=== PATIENT | female | born 1985 | race Caucasian/White ===

== ENCOUNTER 2017-07-02 09:38 | Emergency (ER) | payer SELFPAY ==
[2017-07-02] MEDS: IPRATRPIUM/ALBUTEROL 0.5/2.5MG 3 ML NEBU. NEB (10:07)
== END 2017-07-02 10:32 | disposition home or self-care (01) ==
LOC: ER 09:38
DX: J45.21 Mild intermittent asthma with (acute) exacerbation (principal); J06.9 Acute upper respiratory infection, unspecified; B97.89 Other viral agents as the cause of diseases classified elsewhere; F17.200 Nicotine dependence, unspecified, uncomplicated
CPT/HCPCS: 71046; 94640; 99284-25; J7620

== ENCOUNTER 2019-04-24 18:15 | Emergency (ER) | payer SELFPAY ==
[~2019-04-24] VITALS: Ht 162.6 cm; Wt 95.3 kg
[~2019-04-24 18:15] MED LIST: ALBU2.5V8 INH; LORA-434 PO; ONDA4TAB10 SL; PRED20TA PO
[2019-04-24 18:40] VITALS: BP 161/89
--- NOTE | 2019-04-24 19:11 | PHYS DOC ---
Past Medical History Past Medical History: Anxiety, Other Additional Past Medical Histor: opiate addiction (STACEY PETERSON APRN) Past Surgical History: Tonsillectomy (STACEY PETERSON APRN) Alcohol Use: None Drug Use: Methadone (STACEY PETERSON APRN) Adult General Chief Complaint Chief Complaint: HAND PROBLEM HPI HPI Patient is a 34 year old female who presents after falling when she fell on her bilateral hand on Friday. She states that she fell when she was running from a wasp. The patient rates her pain as 5/10 in severity and states that her R hand is not bothering her but she is having some L hand pain that has been bothering her since that time. (STACEY PETERSON APRN) Review of Systems Review of Systems Constitutional: Denies fever or chills [] Eyes: Denies change in visual acuity, redness, or eye pain [] HENT: Denies nasal congestion or sore throat [] Respiratory: Denies cough or shortness of breath [] Cardiovascular: No additional information not addressed in HPI [] GI: Denies abdominal pain, nausea, vomiting, bloody stools or diarrhea [] : Denies dysuria or hematuria [] Musculoskeletal: Reports L hand pain. Integument: Reports abrasion to the L hand. Neurologic: Denies headache, focal weakness or sensory changes [] Endocrine: Denies polyuria or polydipsia [] Complete systems were reviewed and found to be within normal limits, except as documented in this note. (STACEY PETERSON APRN) Current Medications Current Medications Current Medications Medications (Trade) Dose Ordered Sig/Prashanth Start Time Stop Time Status Last Admin Dose Admin Ketorolac Tromethamine (Toradol 30mg Vial) 30 mg 1X STAT 04/24/19 19:15 04/24/19 19:25 DC 04/24/19 19:15 30 MG (STACEY VILLALOBOS DO) Allergies Allergies Allergies Coded Allergies Type Severity Reaction Last Updated Verified No Known Drug Allergies 06/15/16 No (STACEY VILLALOBOS DO) Physical Exam Physical Exam Constitutional: Well developed, well nourished, no acute distress, non-toxic appearance. [] HENT: Normocephalic, atraumatic, bilateral external ears normal, oropharynx moist, no oral exudates, nose normal. [] Eyes: PERRLA, EOMI, conjunctiva normal, no discharge. [] Neck: Normal range of motion, no tenderness, supple, no stridor. [] Skin: abrasion to palm of hand. Back: No tenderness, no CVA tenderness. [] Extremities: Tenderness to left hand, especially first and 5th digit and top of hand. Neurovascular intact. Neurologic: Alert and oriented X 3, normal motor function, normal sensory function, no focal deficits noted. [] Psychologic: Affect normal, judgement normal, mood normal. [] (STACEY PETERSON APRN) Current Patient Data Vital Signs Vital Signs Date Time Temp Pulse Resp B/P (MAP) Pulse Ox O2 Delivery O2 Flow Rate FiO2 04/24/19 18:40 99.1 91 16 161/89 (113) 97 Room Air 99.1 (STACEY VILLALOBOS DO) EKG EKG [] (STACEY PETERSON APRN) Radiology/Procedures Radiology/Procedures X-ray interpreted by Dr. Villalobos No obvious acute abnormalities. (STACEY PETERSON APRN) Radiology/Procedures PROCEDURE: HAND LEFT 3V EXAM: LEFT HAND 3 VIEWS. HISTORY: Left hand pain after a fall. COMPARISON: None. FINDINGS: No fractures are identified. Alignment is maintained. Joint spaces are maintained. IMPRESSION: 1. No fracture. Electronically signed by: Remy Urbina MD (04/24/2019 9:19 PM) [facility] (STACEY VILLALOBOS DO) Course & Med Decision Making Course & Med Decision Making Pertinent Labs and Imaging studies reviewed. (See chart for details) Will get X-ray and give Toradol. Imaging was negative. Will d/c home. (STACEY PETERSON APRN) Dragon Disclaimer Dragon Disclaimer This electronic medical record was generated, in whole or in part, using a voice recognition dictation system. (STACEY PETERSON APRN) Departure Departure Impression: Primary Impression: Hand pain, left Disposition: HOME, SELF-CARE Condition: STABLE Referrals: NO PCP (PCP) Patient Instructions: Contusion Additional Instructions: Thank you for visiting [facility]. We appreciate you trusting us with your care. If any additional problems come up don't hesitate to return to visit us. Please follow up with your primary care provider so they can plan additional care if needed and know about the problem that you had. If symptoms worsen come back to the Emergency Department. Any concerning symptoms that start such as chest pain, shortness of air, weakness or numbness on one side of the body, running high fevers or any other concerning symptoms return to the ER. Attending Signature Attending Signature I have reviewed the PA/RESEARCH COMPLIANCE SPECIALIST's note and plan of care. I was available for consul tation as needed during the patient's visit in the emergency department. I agree with the clinical impression, plan, and disposition. (STACEY VILALLOBOS DO) STACEY PETERSON APRN Apr 24, 2019 19:11 STACEY VILLALOBOS DO Apr 25, 2019 04:26
[2019-04-24] MEDS ORDERED: KETOROLAC 30 MG/ML VIAL. IM STA (19:15)
--- NOTE | 2019-04-24 21:21 | RAD ---
EXAM: LEFT HAND 3 VIEWS. HISTORY: Left hand pain after a fall. COMPARISON: None. FINDINGS: No fractures are identified. Alignment is maintained. Joint spaces are maintained. IMPRESSION: 1. No fracture. Electronically signed by: Remy Urbina MD (04/24/2019 9:19 PM) [facility]
== END 2019-04-24 20:00 | disposition home or self-care (01) ==
LOC: ER 18:15
DX: M79.642 Pain in left hand (principal); G89.11 Acute pain due to trauma; W18.39XA Other fall on same level, initial encounter; Y93.89 Activity, other specified; Y92.89 Other specified places as the place of occurrence of the external cause; Y99.8 Other external cause status
CPT/HCPCS: 73130; 96372; 99284; J1885